=== PATIENT | male | born 1945 | race Caucasian/White ===

== ENCOUNTER → 2021-10-20 11:09 | Outpatient (CLI) | payer MEDICARE, SELFPAY ==
[2021-10-20 12:24] LABS: Basophils # 0.1 K/mm3 (0-0.2); Basophils % 0.6 % (0.1-2.0); Eosinophils # 0.2 K/mm3 (0.0-0.4); Eosinophils % 2.3 % (0.1-12.0); Hemoglobin 14.3 g/dL (14.1-18.0); Lymphocytes # 2.3 K/mm3 (0.7-4.5); Lymphocytes % 28.5 % (10-50); Mean Corpuscular HGB Conc 31.1 g/dL (31.8-35.4); Mean Corpuscular Hemoglobin 28.4 pg (27.0-31.2); Mean Corpuscular Volume 91.3 fl (80-94); Mean Platelet Volume 8.3 fl (7.4-10.4); Monocytes # 0.6 K/mm3 (0.1-1.0); Monocytes % 7.5 % (1.7-9.3); Neutrophils # 4.9 K/mm3 (1.8-7.8); Neutrophils % 61.1 % (37.0-80.0); Platelet Count 199 K/mm3 (142-424); Red Blood Count 5.04 M/mm3 (4.60-6.20); Red Cell Distribution Width 16.3 % (11.5-17.5)
[2021-10-20 13:07] LABS: Erythrocyte Sedimentation Rate 10 mm/hr (0-20)
[2021-10-20 14:56] LABS: Chloride 102 mmol/L (98-107); Potassium 4.7 mmoL/L (3.5-5.1); Sodium 136 mmol/L (136-145)
[2021-10-20 14:58] LABS: Alanine Aminotransferase 13 U/L (12-78); Aspartate Amino Transferase 19 U/L (17-59); Blood Urea Nitrogen 44 mg/dl (9-20); Estimated Glomerular Filt Rate 46 ml/min (>60); GFR (African American) 55 ML/MIN (>60)
[2021-10-20 14:59] LABS: Albumin Level 4.2 g/dl (3.5-5.0); Albumin/Globulin Ratio 1.9 (1.1-1.8); Alkaline Phosphatase 85 U/L (38-126); Anion Gap 12.7 mEq/L (5-15); Bilirubin,Total 0.4 mg/dl (0.2-1.3); Calcium 8.2 mg/dl (8.4-10.2); Carbon Dioxide 26 mmol/L (22.0-30.0); Globulin 2.2 g/dL (1.3-3.2); Glucose 140 mg/dl (74-100); Total Protein,Serum 6.4 g/dl (6.3-8.2)
[2021-10-20 15:04] LABS: C-Reactive Protein 1.6 mg/L (0-4)
== END ==
PROVIDERS: PCP Family Medicine; Visit Provider Nurse Practitioner Family
DX: E11.621 Type 2 diabetes mellitus with foot ulcer (principal); L97.519 Non-pressure chronic ulcer of other part of right foot with unspecified severity; Z79.84 Long term (current) use of oral hypoglycemic drugs
CPT/HCPCS: 80053; 85025; 85651; 86140; 87070; 87077; 87186; 87205

== ENCOUNTER → 2021-11-03 13:36 | Outpatient (CLI) | payer MEDICARE, SELFPAY ==
--- NOTE | 2021-11-03 | US_ITS ---
FINAL REPORT CLINICAL HISTORY: previous smoker, uses smokeless tobacco, HTN, DM, hyperlipidemia, hx of [place], CAD, cardiac stents. FINDINGS: ANKLE-BRACHIAL PRESSURE INDICES Pressure indices are as follows: RIGHT LOWER EXTREMITY: Ankle-brachial pressure index: 1.1 Comments: Normal LEFT LOWER EXTREMITY: Ankle-brachial pressure index: 1.1 Comments: Normal CONCLUSION: No evidence of significant obstructive peripheral vascular disease of the lower extremities Reviewed, Interpreted and Dictated by Joel Cruz MD Transcribed by Adrienne Matos Authenticated by Joel Cruz MD on 11/03/2021 04:33:11 PM [facility]
--- NOTE | 2021-11-03 15:34 | XR_ITS ---
FINAL REPORT CLINICAL HISTORY: b/l hallux wound first digit FINDINGS: RIGHT FOOT Three views demonstrate no acute fracture or dislocation. There are moderate hypertrophic changes of the tarsometatarsal joints. There is diffuse soft tissue swelling throughout the first digit. No foreign body is identified. There is no bony erosion. A moderate plantar spur is identified. IMPRESSION: Degenerative changes as above. Soft tissue swelling throughout the first digit. Reviewed, Interpreted and Dictated by Joel Cruz MD Transcribed by Sandra Long Authenticated by Joel Cruz MD on 11/03/2021 04:48:[address] [facility]
--- NOTE | 2021-11-03 15:34 | XR_ITS ---
FINAL REPORT CLINICAL HISTORY: b/l hallux wounds at 1st digit FINDINGS: LEFT FOOT Three views demonstrate no acute fracture or dislocation. The joint spaces appear normal. There is diffuse soft tissue swelling throughout the first digit. No foreign body is identified. There is no bony erosion. IMPRESSION: Soft tissue swelling about the first digit. Reviewed, Interpreted and Dictated by Joel Cruz MD Transcribed by Sandra Long Authenticated by Joel Cruz MD on 11/03/2021 04:48:44 PM [facility]
== END ==
PROVIDERS: PCP Family Medicine; Visit Provider Podiatrist
DX: Z51.89 Encounter for other specified aftercare (principal); I25.10 Atherosclerotic heart disease of native coronary artery without angina pectoris; R09.89 Other specified symptoms and signs involving the circulatory and respiratory systems
CPT/HCPCS: 73630; 93923